=== PATIENT | male | born 1970 | race Caucasian/White ===

== ENCOUNTER 2024-02-10 10:29 | Emergency (ER) | payer BC ==
[~2024-02-10] VITALS: Ht 172.7 cm; Wt 95.3 kg
[2024-02-10 10:37] VITALS: TEMP 98.6
[2024-02-10] MEDS ORDERED: ketorolac trometh inj. 60 MG/2 ML VIAL IM ONE (11:25)
[2024-02-10] MEDS ORDERED: HYDR-3686 PO (11:26)
[2024-02-10] MEDS ORDERED: ONDA4TAB12 PO (11:26)
[2024-02-10] MEDS: ketorolac trometh. 30mg/ml inj. IM ONE (11:39)
[2024-02-10] MEDS: diazepam inj 5 MG/ML inj. IM ONE (11:39)
[2024-02-10 12:04] VITALS: BP 181/108; PULSE 64; RESP 16; O2SAT 100
== END 2024-02-10 12:07 | disposition home or self-care (01) ==
LOC: ER 10:29
DX: F11.23 Opioid dependence with withdrawal (principal); F41.9 Anxiety disorder, unspecified
CPT/HCPCS: 96372; 99284; J1885; J3360

== ENCOUNTER 2024-02-12 06:32 | Emergency (ER) | payer BC ==
[~2024-02-12] VITALS: Ht 172.7 cm; Wt 90.8 kg
[~2024-02-12 06:32] MED LIST: HYDR-3686 PO; ONDA4TAB12 PO
[2024-02-12 06:50] VITALS: BP 168/129; PULSE 72; RESP 16; TEMP 99.3; O2SAT 100
[2024-02-12 08:14] LABS: BILIRUBIN,URINE NEGATIVE (Neg); CLARITY,URINE CLEAR (Clear); COLOR,URINE YELLOW (Yellow); GLUCOSE, URINE NEGATIVE (Neg); KETONES,URINE NEGATIVE (Neg); LEUKOCYTE ESTERASE ,URINE NEGATIVE (Neg); NITRITES, URINE NEGATIVE (Neg); OCCULT BLOOD,URINE NEGATIVE (Neg); PROTEIN,URINE TRACE mg/dl (Neg); UROBILINOGEN,URINE 0.2 E.U/dL (0.2-1.0)
[2024-02-12 08:20] LABS: MUCUS STRANDS MODERATE /LPF (Neg); UA COLLECTION TYPE CLN CATCH MIDSTREAM
[2024-02-12 08:21] LABS: RBC,URINE 0-2 /HPF (0-2); WBC,URINE 0-4 /HPF (0-4)
[2024-02-12 08:22] LABS: AMORPHOUS URATES 1+; BACTERIA,URINE FEW /HPF (Neg); SQUAMOUS EPITHELIAL CELL,UR FEW /LPF (FEW)
[2024-02-12] MEDS ORDERED: CLON0.2T PO (08:32)
[2024-02-12] MEDS ORDERED: ONDA4TAB12 PO (08:32)
[2024-02-12 08:36] LABS: URINE AMPHETAMINE SCREEN NEGATIVE (Neg); URINE BARBITUATE SCREEN NEGATIVE (Neg); URINE BENZODIAZEPINES SCREEN POSITIVE (Neg); URINE CANNABINOID SCREEN POSITIVE (Neg); URINE COCAINE SCREEN NEGATIVE (Neg); URINE METHADONE SCREEN NEGATIVE (Neg); URINE OPIATE SCREEN NEGATIVE (Neg); URINE PHENCYCLIDINE SCREEN NEGATIVE (Neg)
[2024-02-12] MEDS ORDERED: TIZA4CAP6 PO (08:45)
[2024-02-12] MEDS: ondansetron 4mg rapidly disintigrating tab PO ONE (08:46)
[2024-02-12] MEDS: cloNIDine 0.1 mg tablet PO ONE (08:49)
[2024-02-12] MEDS: buprenorphine/naloxone 8MG-2MG SUBlingual film SL STA (08:50)
== END 2024-02-12 09:02 | disposition home or self-care (01) ==
LOC: ER 06:33
DX: F15.93 Other stimulant use, unspecified with withdrawal (principal); F41.9 Anxiety disorder, unspecified; I10 Essential (primary) hypertension; Z79.899 Other long term (current) drug therapy
CPT/HCPCS: 80305; 81001; 99284